=== PATIENT | male | born 1990 | race Caucasian/White ===

== ENCOUNTER 2024-05-15 19:45 | Inpatient (IN) | payer OTHER ==
[2024-05-15 20:26] VITALS: BMI 27.2
[2024-05-15] MEDS ORDERED: BENZONATATE 200 MG CAPSULE PO PRN (21:36)
[2024-05-15] MEDS ORDERED: MAGNESIUM HYDROX 2400MG/30ML ORAL SUSPENSION 30 ML CUP PO PRN (21:36)
[2024-05-15] MEDS ORDERED: BISMUTH SUBSALICYLATE 524 MG/30 ML PO PRN (21:36)
[2024-05-15] MEDS ORDERED: METHOCARBAMOL 500 MG TABLET PO PRN (21:36)
[2024-05-15] MEDS ORDERED: NALOXONE (NARCAN) HCL 4 MG/0.1 ML SPRAY NS PRN (21:36)
[2024-05-15] MEDS ORDERED: IBUPROFEN 400 MG TABLET (FP) PO PRN (21:36)
[2024-05-15] MEDS ORDERED: guaiFENesin 600 MG TABLET.ER (FP) PO PRN (21:36)
[2024-05-15] MEDS ORDERED: BENZOCAINE/MENTHOL (CHLORASEPTIC ) LOZENGE MM PRN (21:36)
[2024-05-15] MEDS ORDERED: IBUPROFEN 600 MG TABLET (FP) PO PRN (21:36)
[2024-05-15] MEDS ORDERED: POLYETHYLENE GLYCOL (HEALTHYLAX) 3350 17 GM PACKET PO PRN (21:36)
[2024-05-15] MEDS ORDERED: LOPERAMIDE HCL 2 MG CAPSULE PO PRN (21:36)
[2024-05-15] MEDS ORDERED: MAG HYDROX/AL HYDROX/SIMETH 30 ML UNIT-DOSE CUP PO PRN (21:36)
[2024-05-15] MEDS ORDERED: cloNIDine HCL 0.1 MG TABLET PO PRN (21:36)
[2024-05-15] MEDS ORDERED: DICYCLOMINE HCL 10 MG CAPSULE PO PRN (21:36)
[2024-05-15] MEDS ORDERED: ACETAMINOPHEN 325 MG TABLET (FP) PO PRN (21:36)
[2024-05-15] MEDS ORDERED: NICOTINE POLACRILEX 2 MG LOZENGE BC PRN (21:36)
[2024-05-15] MEDS ORDERED: methaDONE HCL 10 MG TABLET (FOR DETOX USE ONLY) ONE (22:13)
[2024-05-15] MEDS: THIAMINE 100 MG TABLET PO SCH (22:17)
[2024-05-15] MEDS: methaDONE HCL 10 MG TABLET (FOR DETOX USE ONLY) PO ONE (22:17)
[2024-05-15] MEDS: MELATONIN 5 MG TABLETS PO SCH (22:51)
[2024-05-15] MEDS: diazePAM 5 MG TABLET PO ONE (22:51)
[2024-05-15] MEDS: NICOTINE POLACRILEX 2 MG GUM BUC PRN (22:55)
[2024-05-16] MEDS: NICOTINE POLACRILEX 4 MG GUM BUC PRN (09:34)
[2024-05-16] MEDS: PRENATAL VITAMINS W/ FOLIC ACID TABLET (FP) PO SCH (09:34)
[2024-05-16] MEDS: ONDANSETRON *ODT* 4 MG TABLET SL PRN (09:46)
[2024-05-16] MEDS: TRIMETHOBENZAMIDE HCL 200MG/2ML INJ IM PRN (10:50)
[2024-05-16] MEDS: diazePAM 5 MG TABLET PO PRN (12:02)
[2024-05-16] MEDS ORDERED: methaDONE HCL 40 MG DISPERSABLE TABLET PO ONE (12:21)
[2024-05-16 18:01] VITALS: BP 140/68; PULSE 44; RESP 16; TEMP 97.7
[2024-05-16] MEDS ORDERED: SUVOREXANT 10 MG TABLET PO PRN (22:00)
[2024-05-17] MEDS ORDERED: methaDONE HCL 10 MG TABLET (FOR DETOX USE ONLY) PO ONE (10:00)
[2024-05-17] MEDS ORDERED: methaDONE 40 MG, methaDONE 20 MG PO ONE (10:00)
[2024-05-18] MEDS ORDERED: cloNIDine HCL 0.1 MG TABLET PO PRN
[2024-05-18] MEDS ORDERED: methaDONE 40 MG, methaDONE 30 MG PO ONE (10:00)
[2024-05-19] MEDS ORDERED: methaDONE HCL 40 MG DISPERSABLE TABLET PO ONE (10:00)
[2024-05-19] MEDS ORDERED: methaDONE HCL 10 MG TABLET (FOR DETOX USE ONLY) PO ONE (10:00)
[2024-05-20] MEDS ORDERED: methaDONE 80 MG, methaDONE 10 MG PO ONE (10:00)
== END 2024-05-16 17:30 | disposition left against medical advice (07) | DRG 770 ==
LOC: YASAS 19:45 → Y6N 22:06
PROVIDERS: ADMIT Surgery; ATTEND Allergy & Immunology
PROC: HZ2ZZZZ Detoxification Services for Substance Abuse Treatment (ICD-10-PCS; principal; 2024-05-15)
DX: F11.23 Opioid dependence with withdrawal (principal); F13.20 Sedative, hypnotic or anxiolytic dependence, uncomplicated; F17.210 Nicotine dependence, cigarettes, uncomplicated; F19.280 Other psychoactive substance dependence with psychoactive substance-induced anxiety disorder; F19.282 Other psychoactive substance dependence with psychoactive substance-induced sleep disorder; F41.0 Panic disorder [episodic paroxysmal anxiety]; Z88.0 Allergy status to penicillin
CPT/HCPCS: 80305; 93005; 93010; Q0162

== ENCOUNTER 2024-07-20 03:42 | Emergency (ER) | payer OTHER ==
[2024-07-20] MEDS ORDERED: EPINEPHrine 1:1000 P/F - 1 MG/ML AMP ONE (03:54)
[2024-07-20 03:56] VITALS: BP 121/83; PULSE 79; RESP 20; TEMP 98; BMI 25.8
[2024-07-20] MEDS: EPINEPHrine 1:1,000 0.3 MG/0.3 ML SYR IM ONE (04:06)
[2024-07-20] MEDS: FAMOTIDINE 20 MG/50 ML IVPB 20 MG/50 ML MG IVPB ONE (04:06)
[2024-07-20] MEDS: DEXAMETHASONE SOD PHOSPHATE 10 MG/1 ML VIAL IVPUSH ONE (04:06)
[2024-07-20] MEDS ORDERED: DEXAMETHASONE SOD PHOSPHATE 10 MG/1 ML VIAL ONE (04:09)
[2024-07-20] MEDS ORDERED: FAMOTIDINE 20 MG TABLET ONE (04:09)
[2024-07-20] MEDS: FAMOTIDINE 20 MG TABLET PO ONE (04:15)
[2024-07-20] MEDS: DEXAMETHASONE SOD PHOSPHATE 10 MG/1 ML VIAL IM ONE (04:15)
== END 2024-07-20 06:04 | disposition home or self-care (01) ==
LOC: JER 03:42
PROC: 3E023GC Introduction of Other Therapeutic Substance into Muscle, Percutaneous Approach (ICD-10-PCS; principal; 2024-07-20)
PROC: 3E023GC Introduction of Other Therapeutic Substance into Muscle, Percutaneous Approach (ICD-10-PCS; 2024-07-20)
DX: L50.0 Allergic urticaria (principal); K13.0 Diseases of lips; R07.89 Other chest pain; R06.02 Shortness of breath; R00.2 Palpitations; K14.8 Other diseases of tongue
CPT/HCPCS: 93005; 93010; 99284-25; J0171; J1100

== ENCOUNTER 2025-02-01 13:31 | Emergency (ER) | payer OTHER ==
[2025-02-01 13:39] VITALS: BP 141/85; PULSE 55; RESP 20; TEMP 98.5; BMI 30.8
== END 2025-02-01 18:13 | disposition home or self-care (01) ==
LOC: JERFT 13:31
DX: F11.20 Opioid dependence, uncomplicated (principal)
CPT/HCPCS: 99283-25

== ENCOUNTER 2025-02-02 10:42 | Emergency (ER) | payer OTHER ==
[2025-02-02 10:55] VITALS: BP 122/84; PULSE 76; RESP 18; TEMP 97.6; BMI 30.1
== END 2025-02-02 11:54 | disposition home or self-care (01) ==
LOC: JER 10:42 → JERFT 10:42
DX: F11.20 Opioid dependence, uncomplicated (principal)
CPT/HCPCS: 99283-25